=== PATIENT | male | born 1990 | race Caucasian/White ===

== ENCOUNTER 2018-09-12 10:22 | Observation (INO) | payer SELFPAY ==
[2018-09-12] MEDS ORDERED: Ondansetron ODT 4 MG TAB ONE (10:44)
[2018-09-12 11:10] LABS: #Basophils 0.1 thou/uL (0.0-0.2); #Lymphocytes 0.9 thou/uL (1.20-3.40); #Monocytes 0.7 thou/uL (0.11-0.59); #Neutrophils 9.6 thou/uL (1.40-6.50); %Basophils 0.6 % (0.0-1.0); %Eosinophils 0.3 % (0.0-10.0); %Lymphocytes 7.7 % (21.0-51.0); %Monocytes 6.4 % (0.0-10.0); Hemoglobin 18.3 g/dL (14.0-18.0); Mean Corpuscular HGB CONC 34.1 g/dL (32.0-36.0); Mean Corpuscular Hemoglobin 31.3 pg (27.0-31.0); Mean Corpuscular Volume 91.9 fL (78.0-98.0); Mean Platelet Volume 9.2 fL (7.4-10.4); Platelet Count 273 thou/uL (130-400); RBC Distribution Width 12.1 % (11.5-14.5); Red Blood Cell (RBC) Count 5.86 mill/uL (4.70-6.10); White Blood Cell (WBC) Count 11.3 thou/uL (4.8-10.8)
[2018-09-12 11:29] LABS: ALT (SGPT) 92 U/L (8-55); AST (SGOT) 50 U/L (5-34); Alkaline Phosphatase 84 U/L (40-150); Anion Gap 22 mmol/L (10-20); BUN (Urea Nitrogen) 11 mg/dL (8.9-20.6); Bilirubin, Total 6.6 mg/dL (0.2-1.2); Calc. Creatinine Clearance 0 mL/min (70-130); Calcium 10.3 mg/dL (7.8-10.44); Carbon Dioxide 29 mmol/L (22-29); Chloride 89 mmol/L (98-107); Estimated GFR-MDRD 79; Globulin 3.3 g/dL (2.4-3.5); Glucose 128 mg/dL (70-105); Lipase 33 U/L (8-78); Protein, Total 8.3 g/dL (6.0-8.3); Sodium 137 mmol/L (136-145)
[2018-09-12 11:58] LABS: Bilirubin Moderate (Negative); Blood, Urine Negative (Negative); Clarity CLOUDY (Clear); Glucose, Urine (Dipstick) Negative (Negative); Leukocyte Trace (Negative); Nitrite Negative (Negative); Protein, Urine (Dipstick) Trace mg/dL (Neg-Trace); Specific Gravity, Urine 1.014 (1.002-1.036); pH, Urine 6.5 (5.0-9.0)
[2018-09-12 12:00] LABS: Bacteria/HPF None Seen HPF (None Seen); Hyaline Casts/LPF 4-6 HYALINE CAST LPF (0-3 Hyaline); Pathc Cast-AUWi Flag 0.68 (0-2.49); Squamous Epithelial 0-3 HPF (0-3)
[2018-09-12] MEDS ORDERED: Morphine 4 MG/ML VIAL ONE ×2 (12:48→14:14)
--- NOTE | 2018-09-12 13:07 | ULT ---
ULTRASOUND ABDOMEN LIMITED: (RIGHT UPPER QUADRANT) HISTORY: 28-year-old male with right upper quadrant abdominal pain, nausea, vomiting, and elevated liver funct ion tests. FINDINGS: The gallbladder has normal wall thickness and has no evidence of gallstones or sludge. The hepatic e chogenicity is normal. The right kidney has normal echogenicity and has no hydronephrosis. The panc reas is obscured by shadowing from bowel gas. There is no biliary dilation. The common duct caliber is 4 mm. IMPRESSION: 1) No pathology identified. 2) Pancreas not visualized. jn POS: TPC
--- NOTE | 2018-09-12 13:43 | CT ---
EXAM: CT Abdomen Pelvis W Con PROVIDED CLINICAL HISTORY: Right upper quadrant abdominal pain and elevated liver function tests COMPARISON: None FINDINGS: The lung bases are clear. The liver, spleen, pancreas, bilateral adrenal glands, kidneys, abnormal aorta, and urinary bladder d emonstrate a normal CT appearance. The appendix is visualized and normal in caliber. A few scattered colonic diverticula are seen in the colon. No free fluid, fluid collection, or lymphadenopathy is seen in the abdomen or pelvis. No acute osseous abnormality is appreciated. IMPRESSION: No acute findings are seen in the abdomen or pelvis.
[2018-09-12] MEDS ORDERED: ISOVUE-370 76%-LOCM 1 ML ONE (13:44)
[2018-09-12] MEDS ORDERED: Ondansetron PF 4 MG/2 ML Vial ONE (14:14)
[2018-09-12 14:39] LABS: ALT (SGPT) 92 U/L (8-55); AST (SGOT) 53 U/L (5-34); Alkaline Phosphatase 84 U/L (40-150); Bilirubin, Direct 0.9 mg/dL (0.1-0.3); Bilirubin, Total 6.7 mg/dL (0.2-1.2); Protein, Total 8.4 g/dL (6.0-8.3)
[2018-09-12 15:00] LABS: HBSAg Index 0.37 S/CO (0-0.99); Hep A IgM AB Non-Reactive (NonReactive); Hep A IgM S/CO 0.19 S/CO (0-0.79); Hep B Surf Ag Non-Reactive S/CO (NonReactive); Hep C IgG Ab Non-Reactive (NonReactive); Hep C Index 0.13 S/CO (0-0.79); Hepatitis B Core IgM Abs Non-Reactive (NonReactive)
[2018-09-12] MEDS ORDERED: Potassium Chloride 20 MEQ TAB PO SCH (17:15)
[2018-09-12 18:04] LABS: Amphetamine Not Detected (NotDetected); Barbiturates Screen Not Detected (NotDetected); Benzodiazepine Screen Not Detected (NotDetected); Cocaine Metabolite Screen Not Detected (NotDetected); Medtox Control Line Valid? VALID (VALID); Medtox Reader # READER 4; Methadone Not Detected (NotDetected); Methamphetamine Not Detected (NotDetected); Opiate Screen Not Detected (NotDetected); Oxycodone Screen Not Detected (NotDetected); Phencyclidine (PCP) Not Detected (NotDetected); THC/Cannabinoid Screen Detected (NotDetected); Tricyclic Screen Not Detected (NotDetected)
[2018-09-12] MEDS: Morphine 2 MG/ML SYRINGE SLOW IVP PRN (19:52)
[2018-09-12] MEDS: Sodium Chloride 0.9% 1,000 ML IV SCH (19:53)
[2018-09-12] MEDS: Ondansetron PF 4 MG/2 ML Vial IVP PRN (19:54)
[2018-09-12] MEDS: Famotidine 20 MG TAB PO SCH (19:54)
[2018-09-12 20:06] VITALS: BMI 34.9
--- NOTE | 2018-09-13 00:45 | HP ---
CHIEF COMPLAINT: Nausea and vomiting. HISTORY OF PRESENT ILLNESS: The patient is a 28-year-old male with no past medical history, who presented to the hospital with a 6-day history of intermittent nausea, vomiting, and right-sided abdominal pain. 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 The next day, he experienced right upper quadrant pain which he described as sharp, with associated nausea and vomiting. He estimates that over the past 5 or 6 days, he may have had 15-20 episodes of vomiting. He has noted no coffee-ground emesis or other blood. He continues to have normal brown bowel movements with no diarrhea. He denies any associated fever, cough, or chills. Because his symptoms continued to persist, he presented to the ER for further workup and treatment. On arrival, initial workup included blood work which was significant for elevated liver enzymes including a total bilirubin of 6.7, direct bilirubin 0.9, AST 53, ALT 92. Alkaline phosphatase was normal. He was noted to be mildly hypokalemic with a level of 3. Hemoglobin 18.3, hematocrit was 53.8. His UA showed a moderate amount of bilirubin and a high amount of urobilinogen. Imaging has included an abdominal ultrasound which showed no evidence for pathology. The gallbladder was normal with normal wall thickness and no evidence of gallstones or sludge. Right kidney had normal echogenicity. There was no biliary dilatation and the liver had normal echogenicity. CT scan of the abdomen and pelvis with contrast showed no acute findings seen in the abdomen or pelvis. There was no free fluid collection, or lymphadenopathy to liver, spleen, pancreas, bilateral adrenal glands, kidneys, abdominal aorta and urinary bladder, demonstrated normal CT appearance. REVIEW OF SYSTEMS: 12-point review of systems performed and is negative except that stated above. The patient was feeling well up until the time his symptoms began on last . He denies any fever, chills, or cough. No unintentional weight loss. No blood in urine or stools. He has had no chest pain, shortness of breath, or coughing. ALLERGIES: NO KNOWN DRUG ALLERGIES. CODE STATUS IS FULL CODE. HOME MEDICATIONS: He does not take any prescribed or home medications. PAST MEDICAL HISTORY/SURGICAL HISTORY: The patient has no known past medical or surgical history. FAMILY HISTORY: Positive for hypertension. SOCIAL HISTORY: The patient lives with his fiancee in [place]. He does admit to drinking heavy amounts of alcohol in his past, although states that he now drinks alcohol maybe once a week. He does also admit to smoking marijuana, but says the last time he smoked marijuana was about a month ago. He does not smoke any cigarettes. PHYSICAL EXAMINATION: GENERAL: The patient is awake and alert, sitting up in bed, in no acute distress, eating some dinner. HEENT: Head is atraumatic and normocephalic. Eyes positive for scleral icterus. NECK: Trachea is midline. No lymphadenopathy. No JVD. LUNGS: Regular respiratory rate and pattern. Clear to auscultation bilaterally. CV: S1 and S2. Regular rate and rhythm. No appreciable murmurs, rubs, or gallops. ABDOMEN: Auscultate positive bowel sounds throughout. He has some very mild right upper quadrant tenderness to palpation, no rebounding, no guarding. SKIN: Warm and dry, might appreciate some mild jaundice discoloration on the skin of his abdomen. NEURO: The patient is nonfocal. Cranial nerves 2 through 12 are intact. SKIN: Mild jaundice changes on the abdomen as noted above. Otherwise, no rashes, abrasions, or other discolorations. LABORATORY DATA: White blood cell count 11.3, hemoglobin 18.3, hematocrit 53.8, platelets 273. Sodium 137, potassium 3.0, BUN 11, creatinine 1.12, glucose 128, total bilirubin 6.7, direct bilirubin 0.9, AST 53, ALT 92, lipase was 33. UA positive for moderate amount of bilirubin and high amount of urine urobilinogen. His hepatitis screening panel was all negative including hepatitis A IgM A/B, hep BS antigen, hep B core IgM antibody, and hepatitis C antibody. ASSESSMENT: 1. Nausea and vomiting with resulting dehydration and hypokalemia, possibly secondary to gastroenteritis, abdominal ultrasound and CT have been negative for any acute pathological findings. Tox screen positive for cannabinoids, so cannabinoid hyperemesis also in differential. 2. Hyperbilirubinemia with cause unknown at this time. Gilbert disease is in differential given the patient's high level of unconjugated bilirubin, although level quite high for this. 3. Mildly elevated liver transaminases, hep panel is all negative, questionably secondary to previous heavy alcohol use. PLAN: The patient will be admitted for IV fluid resuscitation. We will replete potassium. We will continue antiemetics and supportive care for his symptoms. Regarding his LFTs, we will continue to trend. Workup has been negative thus far. We will continue to monitor his symptoms and consider GI consult if he does not improve. Care has been discussed with Dr. Alexander who agrees with the above. Job ID: [id number] MTDD
[2018-09-13] MEDS: Sodium Chloride 0.9% 1,000 ML IV SCH ×2 (04:04→14:25)
[2018-09-13] MEDS: Morphine 2 MG/ML SYRINGE SLOW IVP PRN ×4 (04:04→23:49)
[2018-09-13 04:56] LABS: ALT (SGPT) 70 U/L (8-55); AST (SGOT) 32 U/L (5-34); Albumin 4.1 g/dL (3.5-5.0); Alkaline Phosphatase 67 U/L (40-150); Anion Gap 14 mmol/L (10-20); BUN (Urea Nitrogen) 11 mg/dL (8.9-20.6); Bilirubin, Direct 0.8 mg/dL (0.1-0.3); Bilirubin, Total 4.3 mg/dL (0.2-1.2); Calc. Creatinine Clearance 193 mL/min (70-130); Calcium 9.4 mg/dL (7.8-10.44); Carbon Dioxide 34 mmol/L (22-29); Chloride 95 mmol/L (98-107); Estimated GFR-MDRD 84; Glucose 90 mg/dL (70-105); Potassium 4.2 mmol/L (3.5-5.1); Protein, Total 6.8 g/dL (6.0-8.3); Sodium 139 mmol/L (136-145)
[2018-09-13] MEDS: Ondansetron PF 4 MG/2 ML Vial IVP PRN ×3 (08:53→20:07)
[2018-09-13] MEDS: Famotidine 20 MG TAB PO SCH ×2 (08:58→20:06)
[2018-09-13 12:42] LABS: #Basophils 0.1 thou/uL (0.0-0.2); #Eosinphils 0.2 thou/uL (0.0-0.7); #Lymphocytes 2.3 thou/uL (1.20-3.40); #Monocytes 0.9 thou/uL (0.11-0.59); #Neutrophils 5.9 thou/uL (1.40-6.50); %Basophils 1.2 % (0.0-1.0); %Eosinophils 1.7 % (0.0-10.0); %Lymphocytes 24.4 % (21.0-51.0); %Monocytes 9.2 % (0.0-10.0); %Neutrophils 63.5 % (42.0-75.0); Hemoglobin 16.3 g/dL (14.0-18.0); Mean Corpuscular HGB CONC 33.6 g/dL (32.0-36.0); Mean Corpuscular Hemoglobin 31.5 pg (27.0-31.0); Mean Corpuscular Volume 93.7 fL (78.0-98.0); Mean Platelet Volume 9.3 fL (7.4-10.4); Platelet Count 223 thou/uL (130-400); RBC Distribution Width 11.9 % (11.5-14.5); Red Blood Cell (RBC) Count 5.18 mill/uL (4.70-6.10); White Blood Cell (WBC) Count 9.3 thou/uL (4.8-10.8)
--- NOTE | 2018-09-13 12:46 | PRG ---
DATE OF SERVICE: 09/13/2018 SUBJECTIVE: Mr. Way is a pleasant 28-year-old male with no past medical history, who presented to the emergency department with a 6-day history of intermittent nausea, vomiting, and right-sided abdominal pain. He has been admitted with hyperbilirubinemia, elevated liver enzymes, and mild dehydration. The patient continues to complain of nausea. He has not had another episode of emesis since his arrival in the ED. He does still complain of some vague abdominal discomfort. He denies fever, chills, headache, sore throat, chest pain, or shortness of breath. OBJECTIVE: VITAL SIGNS: Blood pressure 131/65, O2 saturation 98% on room air, and pulse 64. The patient is afebrile, temperature is 97.7. GENERAL: The patient is awake and alert, sitting up in bed, in no acute distress. HEENT: Head is atraumatic and normocephalic. Eyes, positive for scleral icterus, although may be mildly improved since yesterday. NECK: Trachea is midline. No lymphadenopathy. No JVD. LUNGS: Regular respiratory rate and pattern. Clear to auscultation bilaterally. CV: S1 and S2. Regular rate and rhythm. No appreciable murmurs, rubs, or gallops. ABDOMEN: Positive bowel sounds throughout. Mildly tender to palpation in the upper abdomen. Otherwise, no rebounding, no guarding. Soft with no masses palpated. SKIN: Warm and dry. NEUROLOGIC: The patient is nonfocal. Cranial nerves 2 through 12 are intact. SKIN: Mild jaundice appreciated. Otherwise, no rashes, abrasions, or other discolorations. LABORATORY DATA: Sodium 139, potassium 4.2, chloride 95, carbon dioxide 34, anion gap is 14, BUN 11, creatinine 1.06, glucose is 90, and calcium 9.4. Total bilirubin is 4.3, down from 6.7 yesterday and direct bilirubin is 0.8. AST is now normalized at 32, yesterday it was 53. ALT mildly improved to 70 from 92 yesterday. Lipase 33. ASSESSMENT: 1. Continued nausea and vomiting, dehydration and hypokalemia have now improved. Unknown etiology at this time, questionably secondary to gastroenteritis versus possible cannabinoid hyperemesis. Tox screen was positive for cannabinoids. Abdominal ultrasound and CT have been negative for any acute pathological findings. 2. Hyperbilirubinemia. 3. Mildly elevated transaminases. Hep panel negative. PLAN: Given the patient's continued symptoms, we will consult GI for further recommendations. Given his continued hyperbilirubinemia and normal CT and abdominal ultrasound, the etiology is unclear at this time. Questionable Gilbert disease, although bilirubin would be quite high for this. We will await GI recommendations, and continue supportive care for his nausea including antiemetics. Continue diet as tolerated for now. Job ID: [id number]
[2018-09-13] MEDS ORDERED: Morphine 4 MG/ML VIAL SLOW IVP SCH (21:15)
--- NOTE | 2018-09-13 21:24 | CON ---
DATE OF CONSULTATION: 09/13/2018 REFERRING PHYSICIAN: Ana Rosa West PA-C REASON FOR CONSULTATION: Abdominal pain, nausea, vomiting, abnormal LFTs. HISTORY OF PRESENT ILLNESS: Mr. Alessandro Way is a 28-year-old male, hospitalized with abdominal pain, nausea, and vomiting. The patient was found to have abnormal LFTs. His bilirubin level is high and also transaminase is mildly elevated. The patient has had abdominal CAT scan, abdominal sonogram, both were negative. At the time of the visit, he appears actually very comfortable and he is tolerating diet. He was able to eat his meal today and he is able to keep it down. He is not feeling nauseous anymore. His abdominal pain has markedly improved. 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 He went to work on Monday and he had a few drinks. The patient developed abdominal pain on Monday and pain was mild to moderate across the upper abdomen, predominantly in the right upper quadrant, going towards the epigastric area. The pain was cramping and he had some nausea with a couple of times vomiting. Over the weekend, he has had this pain off and on with some nausea and vomiting. However, symptoms got worse a couple of days ago and vomited multiple times. Because of the patient's abdominal pain and vomiting multiple times yesterday, he came to the ER. He says he has vomited up to 15 to 20 times yesterday. The vomiting is mostly bilious. There is no history of any blood in stool or any coughing or hemoptysis. No history of any melena. The patient had an episode of abdominal cramping, nausea, vomiting year ago, which lasted for about 3 to 4 days and it resolved. The patient used to drink alcohol heavily, but he has been cutting down. The last time he had something to drink was about Monday night, and he had few drinks. He also used to smoke marijuana, but he has not smoked marijuana for the last 2 months. He has no history of any other drug use. He has no other relevant history. ALLERGIES: NONE. SOCIAL HISTORY: The patient smokes marijuana off and on. He does drink alcohol on a regular basis until recently, but he is cutting down. No history of drug use. MEDICAL ILLNESSES: None. SURGERIES: None. FAMILY HISTORY: No family history of liver disease or gallstone. REVIEW OF SYSTEMS: Ten-point system review is totally unremarkable except for the abdominal pain, nausea, and vomiting. PHYSICAL EXAMINATION: GENERAL: He appears very comfortable. He is obese, in no acute distress. VITAL SIGNS: Temperature 98.8 degrees Fahrenheit, pulse is 61, blood pressure 137/64. HEENT: Conjunctivae clear. NECK: Supple. No adenitis or thyromegaly noted. CARDIOVASCULAR: First and second heart sounds heard. LUNGS: Clear to auscultation. ABDOMEN: Not distended. Abdomen is very soft and really no impressive findings. He is tender over the right upper quadrant and right lumbar area, but the tenderness is very minimal. His bowel sounds are active. LABORATORY DATA: The lab data basically show abnormal LFTs with a bilirubin level of 6.6 on admission, dropping to 4.3 today; direct bilirubin 0.8, AST is dropping to 32 from 50, ALT dropping to 70 from 92, alkaline phosphatase is 67. Total protein is 6.8, albumin 4.1. His CBC is actually normal. His abdominal CAT scan and sonogram showed no pathology. CLINICAL IMPRESSION: 1. Abdominal pain, etiology unclear. His symptoms have markedly improved at the present time. The pain is predominantly in the right upper quadrant and right lumbar area. Initially, I thought it could be musculoskeletal, but musculoskeletal pain does not cause nausea and vomiting. 2. Abnormal LFTs. Possibilities;. a. Fatty liver. b. Alcohol intake. 3. I did review Ms. Ana Rosa West's history and physical and I believe that he could also have Gilbert's disease, elevation of bilirubin, mostly unconjugated. That is what the patient has. RECOMMENDATIONS: 1. I recommend diet as tolerated. 2. Repeat LFTs tomorrow. If he has no abdominal pain, nausea, vomiting, and he is tolerating diet, from GI standpoint, he can be discharged home. No further workup was recommended at the present time. Job ID: [id number]
[2018-09-13] MEDS ORDERED: Promethazine HCl 25 MG/ML VIAL IM/IV PRN (21:45)
[2018-09-14] MEDS: Sodium Chloride 0.9% 1,000 ML IV SCH (02:10)
[2018-09-14] MEDS: Morphine 2 MG/ML SYRINGE SLOW IVP PRN (03:43)
[2018-09-14 04:41] LABS: ALT (SGPT) 69 U/L (8-55); AST (SGOT) 31 U/L (5-34); Albumin 3.8 g/dL (3.5-5.0); Alkaline Phosphatase 63 U/L (40-150); Bilirubin, Total 2.6 mg/dL (0.2-1.2); Protein, Total 6.1 g/dL (6.0-8.3)
[2018-09-14] MEDS: Famotidine 20 MG TAB PO SCH (09:20)
[2018-09-14 09:39] VITALS: BP 122/66; TEMP 98.3
--- NOTE | 2018-09-14 17:34 | PRG ---
DATE OF SERVICE: 09/14/2018 SUBJECTIVE: This is a 28-year-old male, hospitalized with abdominal pain, nausea and vomiting. The patient has had negative abdominal sonogram and abdominal CAT scan. Liver function tests were elevated. He does drink alcohol quite heavy. The patient's symptoms markedly improved over the last 24 hours. He was tolerating diet, and has had a good breakfast, lunch felt nauseous and he vomited one time. This morning, actually he feels better. No nausea or abdominal pain. Liver function tests are actually coming down. Bilirubin was 6.7 on admission, come to 2.6 today; direct bilirubin is 1; AST down to 31, which is back to normal; ALT coming down to 69, alkaline phosphatase . PHYSICAL EXAMINATION: GENERAL: Obese, appears comfortable. VITAL SIGNS: Afebrile, pulse is 62, blood pressure is 122/66. CARDIOVASCULAR SYSTEM/LUNGS: Within normal limits. ABDOMEN: Soft. No organomegaly. No tenderness. No masses. RECOMMENDATION: The patient can be discharged home on Zofran p.r.n. The patient was reassured and advised to call me if he develops any problems. Job ID: [id number]
--- NOTE | 2018-09-14 18:25 | DIS ---
DATE OF ADMISSION: 09/12/2018 DATE OF DISCHARGE: 09/14/2018 ALLERGIES: NO KNOWN DRUG ALLERGIES. CHIEF COMPLAINT: Nausea, vomiting, and abdominal pain. FINAL DIAGNOSES: 1. Nausea, vomiting, and abdominal pain, possibly secondary to underlying gastroenteritis, resolved. 2. Mildly elevated liver transaminases at presentation, which did trend down. Hep panel all negative, questionably secondary to heavy alcohol use. 3. Hyperbilirubinemia 6.7 on presentation, which has trended down to 2.6, questionable etiology at this time, although Gilbert's disease is in the differential. 4. Marijuana abuse. 5. Scleral icterus and jaundice on arrival, improved. PROCEDURES PERFORMED: None. LABORATORY RESULTS: LFTs performed on 09/14/2018, showed total bilirubin of 2.6 , direct bilirubin 1.0, AST 31, ALT 69, alkaline phosphatase 63, serum total protein 6.1, albumin 3.8. His CBC from 09/13 showed white blood cell count 9.3, hemoglobin 16.3, hematocrit 48.6, platelet count of 223. Sodium 139, potassium 4.2, chloride 95, carbon dioxide 34, anion gap is 14, BUN 11, creatinine 1.06, and GFR 84. His serology for hepatitis A IgM antibody, hep B, S antigen, hep B core IgM antibody , and hepatitis C antibody were all nonreactive. His urine tox screen was positive for cannabinoids. IMAGING RESULTS: Abdominal ultrasound performed 09/12/2018 showed no pathology identified. The gallbladder was normal, had normal wall thickness and no evidence of gallstones or sludge. The hepatic echogenicity was normal. Right kidney had normal echogenicity and no hydronephrosis. The pancreas was obscured. There was no biliary dilatation. CT of the abdomen and pelvis with contrast showed clear lung bases. The liver, spleen, pancreas, bilateral adrenal glands, kidneys, abdominal aorta and urinary bladder demonstrate normal CT appearance. The appendix is visualized and normal in caliber. A few scattered colonic diverticula are seen in the colon. No free fluid, fluid collection or lymphadenopathy seen in the abdomen and pelvis. No acute osseous abnormality was appreciated. Impression was no acute findings are seen. CONSULTATIONS: Dr. Colon of GI. VITAL SIGNS: Blood pressure 122/66, O2 saturation 100% on room air. Pulse 62. The patient is afebrile with temperature of 98.3. HOSPITAL COURSE: The patient is a 28-year-old male with no past medical history, who presented to the ED with a 6-day history of intermittent nausea, vomiting, and right sided abdominal pain. 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 The next day, he experienced right upper quadrant pain which he describes as sharp with associated nausea and vomiting. He estimated that over the past 5 or 6 days prior to his presentation, he may have had 15 to 20 episodes of vomiting. He noted no coffee-grounds emesis or other blood. He had no diarrhea and continued to have normal bowel movements. He denied any associated fever, cough, or chills. Because his symptoms continued to persist, he decided to seek medical attention. On arrival, his initial blood work was significant for elevated liver enzymes, which included total bilirubin of 6.7, direct bilirubin of 0.9, AST 52, and ALT of 93. His alkaline phosphatase was normal. He was also noted to be mildly hypokalemic level of 3. He did have notable scleral icterus on his physical exam at that time. As outlined above, imaging was negative for any acute pathology. He was admitted for IV fluid resuscitation, repletement of his potassium, and supportive care. During his hospitalization, his liver enzymes did trend down. His hep panel was negative. He was seen in consultation with Dr. Colon, who recommended continuing antiemetics, and I believe that his elevated transaminases could possibly be secondary to fatty liver versus alcohol intake. Certainly, his hyperbilirubinemia could be secondary to Gilbert's disease. In any case, the patient improved during his hospitalization with supportive care. He feels well this morning. He has no abdominal pain. He has not had any vomiting throughout the day, and his vital signs are stable. PHYSICAL EXAMINATION: GENERAL: Awake and alert, comfortable, no respiratory distress. Appears stated age. HEENT: Atraumatic and normocephalic. Eye movement intact. Mild scleral icterus noted. NECK: Supple. No lymphadenopathy. No carotid bruits. RESPIRATORY: Regular respiratory rate and pattern. Clear to auscultation bilaterally. No rhonchi or wheeze. CARDIOVASCULAR: S1, S2. Regular rate and rhythm. No appreciable murmurs, rubs , or gallops. GI: Soft, nontender, normal bowel sounds. PERIPHERAL VASCULAR: No lower extremity pitting edema. +2 DP bilaterally. MUSCULOSKELETAL: No joint effusion or swelling. NEUROLOGIC: Awake and alert. Cranial nerves 2 through 12 intact. No focal deficits. SKIN: Warm and dry. No obvious skin discoloration. CONDITION AT DISCHARGE: Stable. DISCHARGE MEDICATIONS: P.r.n. Zofran 4 mg p.o. q.6 hours. DISCHARGE DISPOSITION: Home. PLAN: The patient has been counseled extensively on cannabinoids cessation as well as alcohol cessation given his elevated liver enzymes. This was discussed with the patient at length. He will call Dr. Colon's office if he has further symptoms. The patient will be discharged today in good condition. Job ID: [id number] [facility]
== END 2018-09-14 12:12 | disposition home or self-care (01) ==
LOC: ERS 10:22 → ERHOLD 14:55 → ONC 18:35
PROVIDERS: ADMIT Internal Medicine; ATTEND Internal Medicine
DX: E86.0 Dehydration (principal); E87.6 Hypokalemia; R11.2 Nausea with vomiting, unspecified; R10.11 Right upper quadrant pain; E80.6 Other disorders of bilirubin metabolism; R74.0 Nonspecific elevation of levels of transaminase and lactic acid dehydrogenase [LDH]; R94.5 Abnormal results of liver function studies; F12.10 Cannabis abuse, uncomplicated; E66.9 Obesity, unspecified; Z68.34 Body mass index [BMI] 34.0-34.9, adult
CPT/HCPCS: 36415; 74177; 76705; 80048; 80053; 80074; 80076; 80306; 81003; 81015; 83690; 85025; 96361; 96374; 96375; 96376; G0378; J2270; J2405; J2550; Q0162; Q9966